=== PATIENT | female | born 1965 | race Caucasian/White ===

== ENCOUNTER → 2018-04-29 | Outpatient (CLI) | payer OTHER | LOC: M WHC 07:58 | DX: M85.832 Other specified disorders of bone density and structure, left forearm (principal) | CPT/HCPCS: 77080 ==

== ENCOUNTER 2019-03-27 14:41 | Observation (INO) | payer OTHER ==
[~2019-03-27] VITALS: Ht 162.6 cm; Wt 96.4 kg
[~2019-03-27 14:41] MED LIST: FLON1SPR NARES; GEMF600T5 PO; LIDO1.1P EX; LISI-538 PO; MAXA10TA14 PO; MELO15TA28 PO
[2019-03-27] MEDS ORDERED: diazePAM 5 MG TAB PO ONE (15:45)
[2019-03-27] MEDS ORDERED: MECLIZINE 25 MG TABLET PO ONE (15:45)
[2019-03-27] MEDS ORDERED: ONDANSETRON 4MG/2ML VIAL (J2405) IV ONE (15:45)
[2019-03-27] MEDS ORDERED: NS 500 ML IV ONE (15:45)
[2019-03-27] MEDS ORDERED: hydrALAZINE INJ 20 MG/ML VIAL IV STA (15:59)
--- NOTE | 2019-03-27 16:32 | REP ---
CT Head without contrast HISTORY: Vertigo COMPARISON: None There is no intraparenchymal hemorrhage, acute infarct, mass or midline shift. The ventricular system is normal in appearance. There is no extra cerebral collection. There is no fracture. The visualized sinuses are clear. IMPRESSION: There is no intracranial lesion. Electronically Signed by Andrew Butt MD 03/27/2019 04:24 P
[2019-03-27 16:53] LABS: BASO # 0.1 10^3/uL (0.0-0.2); BASO % 0.6 % (0.0-1.0); EOS # 0.2 10^3/uL (0.0-0.50); EOS % 1.7 % (0.0-3.0); HEMATOCRIT 45.1 % (36.0-47.0); HEMOGLOBIN 15.1 g/dl (12.0-15.5); LYMPH # 1.6 10^3/uL (1.5-4.5); LYMPH % 12.7 % (24.0-44.0); MEAN CORPUSCULAR HEMOGLOBIN 30.6 pg (27.0-33.0); MEAN CORPUSCULAR HGB CONC 33.5 g/dl (32.0-36.5); MEAN CORPUSCULAR VOLUME 91.3 fl (80.0-96.0); MONO # 0.6 10^3/uL (0.0-0.8); MONO % 4.7 % (0.0-5.0); NEUTROPHILS % 79.9 % (36.0-66.0); PLATELET COUNT, AUTOMATED 304 10^3/uL (150-450); RED BLOOD COUNT 4.94 10^6/uL (4.00-5.40); WHITE BLOOD COUNT 12.5 10^3/uL (4.0-10.0)
[2019-03-27 18:16] LABS: ALBUMIN 3.8 GM/DL (3.2-5.2); ALT/SGPT < 6 U/L (12-78); BILIRUBIN,DIRECT < 0.1 MG/DL (0.0-0.2); BILIRUBIN,TOTAL 0.3 MG/DL (0.2-1.0); BLOOD UREA NITROGEN 12 MG/DL (7-18); CALCIUM LEVEL 8.9 MG/DL (8.5-10.1); CARBON DIOXIDE LEVEL 26 MEQ/L (21-32); CHLORIDE LEVEL 107 MEQ/L (98-107); CREATININE FOR GFR 0.82 MG/DL (0.55-1.30); GLOMERULAR FILTRATION RATE > 60.0 (>51); GLUCOSE, FASTING 100 MG/DL (70-100); LIPASE 171 U/L (73-393); POTASSIUM SERUM 3.8 MEQ/L (3.5-5.1); SODIUM LEVEL 141 MEQ/L (136-145); TOTAL PROTEIN 7.3 GM/DL (6.4-8.2)
[2019-03-27] MEDS ORDERED: LORazepam 2 MG/ML VIAL (J2060) IV STA (18:22)
--- NOTE | 2019-03-27 19:59 | ECGEPIP ---
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
[2019-03-27] MEDS: **NOTE PATIENT COMMENT** MISC XX SCH (21:00)
--- NOTE | 2019-03-27 21:42 | REPVR ---
EXAM: MR Head Without Contrast EXAM DATE/TIME: 03/27/2019 8:48 PM CLINICAL HISTORY: 53 years old, female; Signs and symptoms; Dizziness; Additional info: Intractable vertigo TECHNIQUE: Imaging protocol: MR of the head without contrast. COMPARISON: CT Head without contrast 03/27/2019 3:38 PM FINDINGS: Brain: No acute infarct identified on the diffusion weighted imaging. No parenchymal hemorrhage. No evidence of brain parenchymal edema or intracranial mass effect. No significant white matter disease for the patient's age. Ventricles: Stable. No ventriculomegaly. Bones/joints: There is an 8.3 mm T2 hyperintense lesion in the pineal region statistically likely to be a pineal cyst. Soft tissues: There is a 10 mm ovoid T2 hyperintense lesion in the right nasal tissues probably representing a sebaceous cyst. Sinuses: Normal as visualized. No acute sinusitis. Mastoid air cells: Trace right mastoid effusion. Orbits: Unremarkable. IMPRESSION: No evidence of acute infarct. Electronically signed by: Jennifer Castelan On 03/27/2019 21:42:36 PM
--- NOTE | 2019-03-27 21:45 | REPVR ---
EXAM: MR Angiogram Head Without Contrast, Arteries EXAM DATE/TIME: 03/27/2019 8:48 PM CLINICAL HISTORY: 53 years old, female; Signs and symptoms; Dizziness and giddiness; Additional info: Intractbale vertigo TECHNIQUE: Imaging protocol: MR angiogram head without contrast. Exam focused on the arteries. 3D rendering: MIP reconstructed images were created and reviewed. COMPARISON: CT Head without contrast 03/27/2019 3:38 PM FINDINGS: Right internal carotid artery: Unremarkable. Intracranial segment is patent with no significant stenosis. No aneurysm. Right anterior cerebral artery: Unremarkable. No occlusion or significant stenosis. No aneurysm. Right middle cerebral artery: Unremarkable. No occlusion or significant stenosis. No aneurysm. Right posterior cerebral artery: Unremarkable. No occlusion or significant stenosis. No aneurysm. Right vertebral artery: Unremarkable. No occlusion or significant stenosis. No aneurysm. Left internal carotid artery: Unremarkable. Intracranial segment is patent with no significant stenosis. No aneurysm. Left anterior cerebral artery: Unremarkable. No occlusion or significant stenosis. No aneurysm. Left middle cerebral artery: Unremarkable. No occlusion or significant stenosis. No aneurysm. Left posterior cerebral artery: Unremarkable. No occlusion or significant stenosis. No aneurysm. Left vertebral artery: Unremarkable. No occlusion or significant stenosis. No aneurysm. Basilar artery: Unremarkable. No occlusion or significant stenosis. No aneurysm. IMPRESSION: No major proximal vessel branch occlusion, aneurysm or arteriovenous malformation seen. Electronically signed by: Jennifer Castelan On 03/27/2019 21:45:30 PM
[2019-03-27] MEDS ORDERED: LISI10TA4 PO (22:32)
[2019-03-27] MEDS ORDERED: MELO15TA28 PO (22:32)
[2019-03-27] MEDS ORDERED: AMMO12CR7 TOP (22:32)
[2019-03-27] MEDS ORDERED: LIDO5DIS41 TD (22:32)
[2019-03-27] MEDS ORDERED: ROPI0.253 PO (22:32)
[2019-03-27 23:23] VITALS: BP 156/74
[2019-03-27] MEDS ORDERED: RIZATRIPTAN BENZOATE 10 MG TAB PO PRN (23:45)
[2019-03-27] MEDS ORDERED: ACETAMINOPHEN TAB 650MG DOSE (2X325MG) PO PRN (23:45)
[2019-03-27] MEDS ORDERED: FLUTICASONE PROP 0.05% NASAL SPRAY 16 GM (FLONASE) NARES PRN (23:45)
[2019-03-27] MEDS ORDERED: MOM 30ML SUSPENSION UDC PO PRN (23:45)
[2019-03-27] MEDS ORDERED: rOPINIRole 0.25 MG TAB(REQUIP) PO PRN (23:45)
[2019-03-27] MEDS ORDERED: ONDANSETRON 4MG/2ML VIAL (J2405) IV PRN (23:45)
[2019-03-27] MEDS: ENOXAPARIN 40 MG/0.4 ML SYRINGE (J1650) SC SCH (23:45)
[2019-03-28] MEDS: LISINOPRIL 10 MG TAB PO SCH ×3 (00:14→20:39)
[2019-03-28] MEDS: NS 1,000 ML IV SCH ×3 (00:14→12:07)
[2019-03-28] MEDS: MECLIZINE 25 MG TABLET PO SCH ×4 (00:14→16:39)
--- NOTE | 2019-03-28 02:41 | HPEPDOC ---
General Date of Admission Mar 27, 2019 at 22:24 Other Providers PCP: Dr. Flores @ [facility] Chief Complaint The patient is a 53-year-old female admitted with a reason for visit of Severe Dizziness. History of Present Illness 53-year-old female presents with boyfriend for dizziness that started all of a sudden this afternoon while sitting. She describes it as the room spinning, rather than her being off-balance. Has associated nausea and vomiting. Denies ever experiencing this before. Denies any motor, sensory, or neurologic changes. No blurred vision, tinnitus, eye or ear pain, paresthesias. Denies any recent illness, changes in meds, travel history, sick contacts. Of note, she did initially present with elevated BP as high as 200s/100s. In the ER, she received Valium, meclizine, Zofran, NS bolus, hydralazine, & Ativan. Her BP and vertiginous symptoms did improve, however still slightly dizzy. She will therefore be admitted. Home Medications Scheduled Ammonium Lactate (Ammonium Lactate) 12% Cream..g., 1 APLCT TOP DAILY, (Reported) Lidocaine (Lidoderm) 5% Adh..patch, 1 PATCH TD DAILY, (Reported) APPLIES TO BACK Lisinopril (Lisinopril) 10 Mg Tablet, 10 MG PO BID, (Reported) Meloxicam (Meloxicam) 15 Mg Tablet, 15 MG PO DAILY, (Reported) Scheduled PRN Fluticasone Propionate (Flonase Allergy Relief) 9.9 Ml [place].susp, 1 SPR NARES BID PRN for ALLERGIES, (Reported) Rizatriptan Benzoate (Maxalt) 10 Mg Tablet, 10 MG PO DAILY PRN for MIGRAINE, (Reported) Ropinirole HCl (Ropinirole HCl) 0.25 Mg Tablet, 0.25 MG PO DAILY PRN for RES TLESS LEGS, (Reported) Allergies Coded Allergies: No Known Allergies (Verified , 09/19/04) Past Medical History Medical History Hypertension Seasonal allergies Migraines Restless leg syndrome Surgical History Appendectomy Tubal ligation Family History Father with MA. Mother with CAD and thyroid disorder. 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 Admits hx migraines. Denies ear pain, tinnitus, hearing loss Skin: Denies any rashes or lesions Pulmonary: Denies dyspnea, cough, wheezing Cardiac: Denies chest pain, palpitations GI: Admits nausea & vomiting. No abdominal pain, changes in bowel, or blood loss MSK: No new pains or aches Neurologic: Admits to dizziness, room-spinning with movement. Denies any new numbness/tingling or sensory loss. Denies slurred speech, weakness, confusion. Denies sensitivity to lights or sounds. Physical Examination Other physical findings General exam: Alert and cooperative, A&O 3, NAD Eye exam: PERRLA, EOMI, anicteric sclera, red reflex present b/l ENT: Atraumatic, normocephalic, slightly dry membranes moist, tongue midline, no pharyngeal edema or erythema. Patent ear canals with intact TM without effusion Neck: Supple, no JVD, no tenderness to c-spine Cardiac: RRR, normal S1 & S2, no murmurs Respiratory: CTAB, good air exchange, no wheezing, rhonchi, or rales Abdomen: obese, normoactive bowel sounds, soft, nontender, nondistended Extremity: no edema or tenderness. Able to move all limbs with ease Skin: [place], warm, dry, no visible rash or lesions Neuro: Strength, tone, & sensation intact. Normal speech, no deficits in any limbs. Gait intact and normal without any swaying or near-falls. Negative Romberg. No tremors or nystagmus. Psych: Normal mood and affect Vital Signs Vital Signs Date Time Temp Pulse Resp B/P (MAP) Pulse Ox O2 Delivery O2 Flow Rate FiO2 03/28/19 00:14 152/83 03/27/19 23:23 97.9 84 18 96 03/27/19 23:01 Room Air Laboratory Data Labs 24H Laboratory Tests 2 03/27/19 16:38: Immature Granulocyte % (Auto) 0.4, White Blood Count 12.5H, Red Blood Count 4.94, Hemoglobin 15.1, Hematocrit 45.1, Mean Corpuscular Volume 91.3, Mean Corpuscular Hemoglobin 30.6, Mean Corpuscular Hemoglobin Concent 33.5, Red Cell Distribution Width 12.7, Platelet Count 304, Neutrophils (%) (Auto) 79.9H, Lymphocytes (%) (Auto) 12.7L, Monocytes (%) (Auto) 4.7, Eosinophils (%) (Auto) 1.7, Basophils (%) (Auto) 0.6, Neutrophils # (Auto) 10.0H, Lymphocytes # (Auto) 1.6, Monocytes # (Auto) 0.6, Eosinophils # (Auto) 0.2, Basophils # (Auto) 0.1, Nucleated Red Blood Cells % (auto) 0.0, Anion Gap 8, Glomerular Filtration Rate > 60.0, Calcium Level 8.9, Aspartate Amino Transf (AST/SGOT) 12, Alanine Aminotransferase (ALT/SGPT) < 6L, Alkaline Phosphatase 129H, Total Bilirubin 0.3, Direct Bilirubin < 0.1, Total Protein 7.3, Albumin 3.8, Albumin/Globulin Ratio 1.09, Lipase 171 CBC/BMP Laboratory Tests 03/27/19 16:38 Red Blood Count 4.94, Mean Corpuscular Volume 91.3, Mean Corpuscular Hemoglobin 30.6, Mean Corpuscular Hemoglobin Concent 33.5, Red Cell Distribution Width 12.7, Neutrophils (%) (Auto) 79.9 H, Lymphocytes (%) (Auto) 12.7 L, Monocytes (%) (Auto) 4.7, Eosinophils (%) (Auto) 1.7, Basophils (%) (Auto) 0.6, Neutrophils # (Auto) 10.0 H, Lymphocytes # (Auto) 1.6, Monocytes # (Auto) 0.6, Eosinophils # (Auto) 0.2, Basophils # (Auto) 0.1 Assessment/Plan Dizziness with nausea and vomiting Likely vertigo from BPPV, as pt feels room is spinning. Sx only occur with movement, improve with rest. Unlikely Meniere or Vestibular Neuritis or migraine based on sx. Responded well to Meclizine in ER. Brain CT & MRI negative. EKG shows no acute abnormality. She does appear to be slightly dehydrated on exam, likely 2/2 n/v from dizziness. Will continue Meclizine and start on IVF and antiemetics. Encourage working with PT & OT and may benefit from vestibular rehab. No focal deficits or neuro abnormalities on exam. Hypertension Continue home lisinopril Seasonal allergies Continue home Flonase Migraines Continue home Maxalt, meloxicam Restless leg syndrome Continue home ropinirole Morbid obesity BMI 36 complicates care DVT ppx: Lovenox sc DISPO: will admit to hospital. PT/OT ordered. Plan / VTE VTE Prophylaxis Ordered?: Yes GME ATTESTATION GME ATTESTATION My faculty preceptor for this patient encounter was physically present during the encounter and was fully available. All aspects of the patient interview, examination, medical decision making process, and medical care plan development were reviewed and approved by the faculty preceptor. The faculty preceptor is aware and concurs with the plan as stated in the body of this note and will at test to such by his/her cosignature. ATTENDING NOTE I have personally examined the patient at bedside along with resident physician. I have discussed above mentioned assessment and treatment plan with resident physician. I will continue to follow the patient during entire hospital stay. ANNIE GARCIA DO Mar 28, 2019 02:41 KAMILAH RUCKER MD Mar 28, 2019 20:26
[2019-03-28 06:00] VITALS: BP 133/67
[2019-03-28 06:40] LABS: HEMATOCRIT 41.7 % (36.0-47.0); HEMOGLOBIN 13.7 g/dl (12.0-15.5); MEAN CORPUSCULAR HEMOGLOBIN 29.7 pg (27.0-33.0); MEAN CORPUSCULAR HGB CONC 32.9 g/dl (32.0-36.5); MEAN CORPUSCULAR VOLUME 90.5 fl (80.0-96.0); PLATELET COUNT, AUTOMATED 312 10^3/uL (150-450); RED BLOOD COUNT 4.61 10^6/uL (4.00-5.40); WHITE BLOOD COUNT 10.9 10^3/uL (4.0-10.0)
[2019-03-28 06:59] LABS: BLOOD UREA NITROGEN 10 MG/DL (7-18); CALCIUM LEVEL 8.5 MG/DL (8.5-10.1); CARBON DIOXIDE LEVEL 28 MEQ/L (21-32); CHLORIDE LEVEL 110 MEQ/L (98-107); CREATININE FOR GFR 0.86 MG/DL (0.55-1.30); GLOMERULAR FILTRATION RATE > 60.0 (>51); GLUCOSE, FASTING 87 MG/DL (70-100); POTASSIUM SERUM 3.8 MEQ/L (3.5-5.1); SODIUM LEVEL 142 MEQ/L (136-145)
[2019-03-28] MEDS: NICOTINE 14 MG/24 HR TRANSDERMAL TD SCH (08:04)
[2019-03-28] MEDS: LIDOCAINE 5% (LIDODERM) PATCH TD SCH (08:05)
[2019-03-28] MEDS: LACTIC ACID 12% LOTION 225 GM BTL TOP SCH (08:08)
[2019-03-28] MEDS: MELOXICAM (MOBIC) 7.5 MG TAB PO SCH (12:07)
[2019-03-28 14:00] VITALS: BP 144/81
--- NOTE | 2019-03-28 14:11 | IPNPDOC ---
Text Note Date of Service The patient was seen on 03/28/19. NOTE Subjective: Patient is a 53-year-old female with a PMHx HTN, Seasonal allergies, Migraines and RLS who presented to the ER with complaints of dizziness that started suddenly on 03/27 afternoon. . She described the sensation as the room spinning and reported associated nausea and vomiting. Hospitalist service was called and patient was admitted for further evaluation and treatment. Patient was seen and examined at the bedside. Patient reports that her dizziness appears to be improving. Denies any nausea and vomiting at this moment. Denies any chest pain, short of breath, palpitations, constipation, diarrhea or any abdominal pain. Denies any discomfort with urination Objective: Vitals (See below) General: Lying in bed, no acute distress, comfortable, AAOx3 HEENT: NC, AT CVS: RRR, +S1S2 Lungs: Fair air entry b/l, Abdomen: Soft, ND, NT Extremities: - Edema, - Calf tenderness Assessment and plan: Dizziness with nausea and vomiting - Likely vertigo from BPPV, unlikely 2/2 Vestibular neuritis / Meniere disease - Patient reported symptoms of room spinning associated with nausea and vomiti ng; currently, she feels that there has been improvement - Remains hemodynamically stable and afebrile - CT head 03/27: There is no intracranial lesion. - MRA Brain 03/27: No major proximal vessel branch occlusion, aneurysm or arteriovenous malformation seen. - MRI Brain 03/27: No evidence of acute infarct. - c/w Meclizine and IV fluid hydration - c/w PT / OT until cleared for DC home Hypertension - c/w Lisinopril Seasonal allergies - c/w Flonase Migraines - c/w Maxalt and Meloxicam Restless leg syndrome - c/w Ropinirole Morbid obesity - BMI 36 - Complicates care DVT prophylaxis - c/w Lovenox Disposition: - Awaiting progression with PT / OT VS,Ceferinobonjin, I+O VS, Fishbone, I+O Laboratory Tests 03/27/19 16:38 Red Blood Count 4.94, Mean Corpuscular Volume 91.3, Mean Corpuscular Hemoglobin 30.6, Mean Corpuscular Hemoglobin Concent 33.5, Red Cell Distribution Width 12.7, Neutrophils (%) (Auto) 79.9 H, Lymphocytes (%) (Auto) 12.7 L, Monocytes (%) (Auto) 4.7, Eosinophils (%) (Auto) 1.7, Basophils (%) (Auto) 0.6, Neutrophils # (Auto) 10.0 H, Lymphocytes # (Auto) 1.6, Monocytes # (Auto) 0.6, Eosinophils # (Auto) 0.2, Basophils # (Auto) 0.1 03/28/19 06:06 Red Blood Count 4.61, Mean Corpuscular Volume 90.5, Mean Corpuscular Hemoglobin 29.7, Mean Corpuscular Hemoglobin Concent 32.9, Red Cell Distribution Width 13.0, Calcium Level 8.5 Vital Signs Date Time Temp Pulse Resp B/P (MAP) Pulse Ox O2 Delivery O2 Flow Rate FiO2 03/28/19 08:04 133/67 03/28/19 06:00 97.6 89 18 94 03/27/19 23:01 Room Air I&O- Last 24 Hours up to 6 AM 03/28/19 05:59 Intake Total 500 ml Output Total 350 ml Balance 150 ml GLORIA ATKINSON MD Mar 28, 2019 14:11
[2019-03-28 20:37] VITALS: BP_SYST 154; BP_SYST 159; BP_DIAS 86; BP_DIAS 91; BP_DIAS 92
[2019-03-28] MEDS: ENOXAPARIN 40 MG/0.4 ML SYRINGE (J1650) SC SCH (20:39)
[2019-03-28] MEDS: **NOTE PATIENT COMMENT** MISC XX SCH ×2 (20:41→20:58)
[2019-03-28 22:00] VITALS: BP 154/86
[2019-03-29] MEDS: MECLIZINE 25 MG TABLET PO SCH ×2 (01:06→05:36)
[2019-03-29 05:36] VITALS: BP_SYST 135; BP_SYST 158; BP_SYST 162; BP_DIAS 103; BP_DIAS 74; BP_DIAS 91
[2019-03-29 06:00] VITALS: BP 135/74
[2019-03-29 07:00] LABS: HEMATOCRIT 39.4 % (36.0-47.0); HEMOGLOBIN 12.5 g/dl (12.0-15.5); MEAN CORPUSCULAR HEMOGLOBIN 29.8 pg (27.0-33.0); MEAN CORPUSCULAR HGB CONC 31.7 g/dl (32.0-36.5); MEAN CORPUSCULAR VOLUME 93.8 fl (80.0-96.0); PLATELET COUNT, AUTOMATED 274 10^3/uL (150-450)
[2019-03-29] MEDS ORDERED: MECL-86 PO ×2 (07:15→09:14)
[2019-03-29 07:25] LABS: BLOOD UREA NITROGEN 14 MG/DL (7-18); CALCIUM LEVEL 8.5 MG/DL (8.5-10.1); CARBON DIOXIDE LEVEL 28 MEQ/L (21-32); CHLORIDE LEVEL 110 MEQ/L (98-107); CREATININE FOR GFR 0.99 MG/DL (0.55-1.30); GLOMERULAR FILTRATION RATE > 60.0 (>51); GLUCOSE, FASTING 107 MG/DL (70-100); POTASSIUM SERUM 4.2 MEQ/L (3.5-5.1); SODIUM LEVEL 143 MEQ/L (136-145)
[2019-03-29] MEDS: LACTIC ACID 12% LOTION 225 GM BTL TOP SCH (08:32)
[2019-03-29] MEDS: NICOTINE 14 MG/24 HR TRANSDERMAL TD SCH (08:32)
[2019-03-29 08:33] VITALS: BP 135/74
[2019-03-29] MEDS: LISINOPRIL 10 MG TAB PO SCH (08:33)
[2019-03-29] MEDS: MELOXICAM (MOBIC) 7.5 MG TAB PO SCH (08:33)
[2019-03-29] MEDS: LIDOCAINE 5% (LIDODERM) PATCH TD SCH (08:34)
--- NOTE | 2019-03-29 11:04 | DS.PDOC ---
Discharge Summary General Date of Admission Mar 27, 2019 at 22:24 Date of Discharge 03/29/2019 Discharge Summary PROCEDURES PERFORMED DURING STAY: [None]. ADMITTING DIAGNOSES / DISCHARGE DIAGNOSES: Dizziness with nausea and vomiting - Likely vertigo from BPPV, unlikely 2/2 Vestibular neuritis / Meniere disease Hypertension Seasonal allergies Migraines Restless leg syndrome Morbid obesity DVT prophylaxis COMPLICATIONS/CHIEF COMPLAINT: Dizziness / Room spinning HISTORY OF PRESENT ILLNESS: Patient is a 53-year-old female with a PMHx HTN, Seasonal allergies, Migraines and RLS who presented to the ER with complaints of dizziness that started suddenly on 03/27 afternoon. . She described the sensation as the room spinning and reported associated nausea and vomiting. Hospitalist service was called and patient was admitted for further evaluation and treatment. HOSPITAL COURSE: Dizziness with nausea and vomiting - Likely vertigo from BPPV, unlikely 2/2 Vestibular neuritis / Meniere disease - Patient reports resolution of her dizziness and has not experienced any nausea and vomiting - Remains hemodynamically stable and afebrile - CT head 03/27: There is no intracranial lesion. - MRA Brain 03/27: No major proximal vessel branch occlusion, aneurysm or arteriovenous malformation seen. - MRI Brain 03/27: No evidence of acute infarct. - c/w Meclizine; s/p IV fluid hydration - c/w PT;has been cleared for DC home - we'll have outpatient follow-up with vestibular therapy Hypertension - c/w Lisinopril Seasonal allergies - c/w Flonase Migraines - c/w Maxalt and Meloxicam Restless leg syndrome - c/w Ropinirole Morbid obesity - BMI 36 - Complicates care DVT prophylaxis - c/w Lovenox DISCHARGE MEDICATIONS: Please see below. ALLERGIES: Please see below. PHYSICAL EXAMINATION ON DISCHARGE: Vitals (See below) General: Lying in bed, no acute distress, comfortable, AAOx3 HEENT: NC, AT CVS: RRR, +S1S2 Lungs: Fair air entry b/l, without evidence of wheezing, rhonchi or rales Abdomen: Soft, nondistended, without tenderness Extremities: No evidence of edema, - Calf tenderness LABORATORY DATA: Please see below. ACTIVITY: [As tolerated]. DISCHARGE PLAN: Follow up with PCP at [facility] within 7 days Remain compliant with treatment plan and medications Return to the ER if you experience any problems DISPOSITION: Home, Self-Care with outpatient vestibular therapy DISCHARGE CONDITION: [Stable]. TIME SPENT ON DISCHARGE: Greater than [35] minutes. Vital Signs/I&Os Vital Signs Date Time Temp Pulse Resp B/P (MAP) Pulse Ox O2 Delivery O2 Flow Rate FiO2 03/29/19 08:33 135/74 03/29/19 06:00 97.6 66 18 94 03/27/19 23:01 Room Air I&O- Last 24 Hours up to 6 AM 03/29/19 06:00 Intake Total 1800 ml Output Total 400 ml Balance 1400 ml Laboratory Data Labs 24H Laboratory Tests 2 03/29/19 06:31: Nucleated Red Blood Cells % (auto) 0.0, Anion Gap 5L, Glomerular Filtration Rate > 60.0, Blood Urea Nitrogen 14, Creatinine 0.99, Sodium Level 143, Potassium Level 4.2, Chloride Level 110H, Carbon Dioxide Level 28, Calcium Level 8.5 CBC/BMP Laboratory Tests 03/29/19 06:31 Red Blood Count 4.20, Mean Corpuscular Volume 93.8, Mean Corpuscular Hemoglobin 29.8, Mean Corpuscular Hemoglobin Concent 31.7 L, Red Cell Distribution Width 13.2, Calcium Level 8.5 Discharge Medications Scheduled Ammonium Lactate (Ammonium Lactate) 12% Cream..g., 1 APLCT TOP DAILY, (Reported) Lidocaine (Lidoderm) 5% Adh..patch, 1 PATCH TD DAILY, (Reported) APPLIES TO BACK Lisinopril (Lisinopril) 10 Mg Tablet, 10 MG PO BID, (Reported) Meloxicam (Meloxicam) 15 Mg Tablet, 15 MG PO DAILY, (Reported) Scheduled PRN Fluticasone Propionate (Flonase Allergy Relief) 9.9 Ml [place].susp, 1 SPR NARES BID PRN for ALLERGIES, (Reported) Meclizine HCl (Meclizine HCl) 25 Mg Tablet, 25 MG PO TIDP PRN for DIZZINESS Rizatriptan Benzoate (Maxalt) 10 Mg Tablet, 10 MG PO DAILY PRN for MIGRAINE, (Reported) Ropinirole HCl (Ropinirole HCl) 0.25 Mg Tablet, 0.25 MG PO DAILY PRN for RESTLESS LEGS, (Reported) Allergies Coded Allergies: No Known Allergies (Verified , 09/19/04) GLORIA ATKINSON MD Mar 29, 2019 11:04
== END 2019-03-29 09:40 | disposition home or self-care (01) ==
LOC: M ED 14:41 → M ED INP 22:24 → M MS5PR 23:30
PROVIDERS: ADMIT Internal Medicine; ATTEND Internal Medicine
DX: H81.10 Benign paroxysmal vertigo, unspecified ear (principal); R11.2 Nausea with vomiting, unspecified; I10 Essential (primary) hypertension; G43.909 Migraine, unspecified, not intractable, without status migrainosus; G25.81 Restless legs syndrome; E66.01 Morbid (severe) obesity due to excess calories; F17.210 Nicotine dependence, cigarettes, uncomplicated
CPT/HCPCS: 36415; 70450; 70544; 70551; 80048; 80076; 83690; 85025; 85027; 93005; 93041; 96372; 96374; 96375; 97112; 97161; 99285; J1650; J2060; J2405

== ENCOUNTER 2019-04-09 05:53 | Day surgery (SDC) | payer OTHER ==
[~2019-04-09] VITALS: Ht 162.6 cm; Wt 97.5 kg
[~2019-04-09 05:53] MED LIST changes: +AMMO12CR7 TOP; +LIDO5DIS41 TD; +LISI10TA4 PO; +MECL-86 PO; +ROPI0.253 PO
[2019-04-09] MEDS ORDERED: LR 1,000 ML IV ONE (06:00)
[2019-04-09] MEDS ORDERED: LIDOCAINE 1% MDV 20ML VIAL SQ PRN (06:00)
[2019-04-09] MEDS ORDERED: ceFAZolin SOD 1 GM in D5W MINI-BAG PLUS 50 ML IV ONE (06:30)
[2019-04-09] MEDS ORDERED: LIDOCAINE W/EPINEPHRINE 1% 20ML VIAL As Ordered ONE (06:56)
[2019-04-09] MEDS ORDERED: BACITRACIN OINT 30GM As Ordered ONE (06:56)
[2019-04-09] MEDS ORDERED: POVIDONE-IODINE 5% OPHTH PREP SOL 30ML As Ordered ONE (07:13)
[2019-04-09] MEDS ORDERED: LIDOCAINE 2% W/EPIN INJ 20ML **PRES FREE As Ordered ONE (07:16)
[2019-04-09] MEDS ORDERED: POLYSPORIN OPHTH OINT 3.5 GM As Ordered ONE (07:19)
[2019-04-09] MEDS ORDERED: SCOPOLAMINE 1MG TRANSDERMAL PATCH As Ordered ONE (07:22)
[2019-04-09] MEDS ORDERED: SCOPOLAMINE 1MG TRANSDERMAL PATCH TOP ONE (07:30)
[2019-04-09] MEDS ORDERED: PROPOFOL 200 MG/20 ML VIAL As Ordered ONE ×2 (07:42→07:43)
[2019-04-09] MEDS ORDERED: LIDOCAINE 2% INJ 100 MG/5 ML SDV (FOR ANES.) As Ordered ONE (07:42)
[2019-04-09] MEDS ORDERED: MIDAZOLAM INJ 2 MG/2 ML VIAL (J2250) As Ordered ONE (07:42)
[2019-04-09] MEDS ORDERED: KETOROLAC 60 MG/2 ML VIAL (J1885) As Ordered ONE (07:42)
[2019-04-09] MEDS ORDERED: fentaNYL 100 MCG/2 ML INJECTION (J3010) As Ordered ONE (07:42)
[2019-04-09] MEDS ORDERED: ONDANSETRON 4MG/2ML VIAL (J2405) As Ordered ONE (07:42)
[2019-04-09] MEDS ORDERED: METOCLOPRAMIDE INJ 10MG/2ML VIAL (J2765) As Ordered ONE (07:42)
[2019-04-09] MEDS ORDERED: dexameTHASONE 4 MG/ML 1ML VIAL (J1100) As Ordered ONE (07:42)
--- NOTE | 2019-04-09 08:08 | POST-OPPD ---
Postoperative Procedure Note Date Of Procedure: April 09, 2019 PREOPERATIVE DIAGNOSIS: Right nose mass POSTOPERATIVE DIAGNOSIS: same FINDINGS: right nose cyst PROCEDURE: Excision right nose mass SURGEON: Dr Meadows ANESTHESIA: local with sedation SPECIMENS: right nose cyst ESTIMATED BLOOD LOSS: 1 cc REPLACED: none DRAINS: none COMPLICATIONS: none POSTOPERATIVE CONDITION: stable BRITTANIE MEADOWS DO April 09, 2019 08:08
[2019-04-09 08:45] VITALS: BP 150/75
--- NOTE | 2019-04-09 17:32 | RO ---
DATE OF PROCEDURE: 04/09/2019 PREOPERATIVE DIAGNOSIS: Right nose mass. POSTOPERATIVE DIAGNOSIS: Right nose mass. PROCEDURE: Excision right nose mass. ATTENDING SURGEON: Dr. Alvarez ANESTHESIA: Local with sedation. SPECIMEN: Right nose cyst. BLOOD LOSS: 1 mL. REPLACEMENT: None. DRAINS: None. COMPLICATIONS: None. PROCEDURE: This is a 53-year-old female who has slow growing mass on the right side of her nose now it is about 1.5 cm in diameter and it is protruding. Patient wishes to have it removed. All risks and benefits and alternatives were discussed with the patient. She is ready to proceed. On the day of surgery she was marked in the preoperative holding area to identify the lesion. There is no purulence or no drainage from it. The patient was brought into the operating room and placed in a supine position and antibiotics were given to the patient. Sequential stockings were placed on the lower calves. She was prepped and draped in the usual sterile fashion. 2% Lidocaine with epinephrine was used to give infraorbital block and also field block. Total 3 mL of total local. After the numbing effect of the local anesthesia had taken place. The incision was carried out along the nasal labial groove. There is punctum that was identified on the skin and its is included in her excision of the small sliver of skin. Blunt dissection was carried out the cyst was identified and was bluntly dissected out in its entirety and sent to pathology. The area was irrigated with Bacitracin irrigation solution and closed in layers with 4-0 and 5-0 Monocryl. Steri-strips were applied. Patient tolerated the procedure well. She was transferred to the recovery room in stable condition.
== END 2019-04-09 09:35 | disposition home or self-care (01) ==
LOC: M SDC 05:53
PROVIDERS: ATTEND Plastic Surgery Surgery of the Hand
DX: L72.0 Epidermal cyst (principal); I10 Essential (primary) hypertension; E11.9 Type 2 diabetes mellitus without complications; E03.9 Hypothyroidism, unspecified; K58.9 Irritable bowel syndrome, unspecified; K21.9 Gastro-esophageal reflux disease without esophagitis; M54.5 Low back pain; G89.29 Other chronic pain; L30.9 Dermatitis, unspecified; M12.9 Arthropathy, unspecified; G43.909 Migraine, unspecified, not intractable, without status migrainosus; R06.83 Snoring; G47.30 Sleep apnea, unspecified; E66.01 Morbid (severe) obesity due to excess calories; Z68.36 Body mass index [BMI] 36.0-36.9, adult; Z98.51 Tubal ligation status; Z72.0 Tobacco use
CPT/HCPCS: 11443; 88307; J0690; J1100; J1885; J2250; J2405; J2765; J3010

== ENCOUNTER 2020-01-02 13:53 | Emergency (ER) | payer OTHER ==
[~2020-01-02] VITALS: Ht 162.6 cm; Wt 99.1 kg
[2020-01-02] MEDS ORDERED: GABA600T4 (14:13)
[2020-01-02] MEDS ORDERED: METF-791 (14:13)
[2020-01-02] MEDS ORDERED: CRES20TA2 (14:13)
[2020-01-02 14:47] LABS: BASO # 0.1 10^3/uL (0.0-0.2); BASO % 0.8 % (0.0-1.0); EOS # 0.2 10^3/uL (0.0-0.5); EOS % 2.1 % (0.0-3.0); HEMOGLOBIN 15.3 g/dl (12.0-15.5); LYMPH # 2.6 10^3/uL (1.5-5.0); MEAN CORPUSCULAR HEMOGLOBIN 29.5 pg (27.0-33.0); MEAN CORPUSCULAR HGB CONC 31.9 g/dl (32.0-36.5); MEAN CORPUSCULAR VOLUME 92.7 fl (80.0-96.0); MONO # 0.8 10^3/uL (0.0-0.8); MONO % 7.4 % (0.0-5.0); NEUTROPHILS # 6.7 10^3/uL (1.5-8.5); NEUTROPHILS % 64.3 % (36.0-66.0); PLATELET COUNT, AUTOMATED 298 10^3/uL (150-450); RED BLOOD COUNT 5.18 10^6/uL (4.00-5.40); WHITE BLOOD COUNT 10.5 10^3/uL (4.0-10.0)
--- NOTE | 2020-01-02 14:56 | REP ---
Portable chest, 02:36 p.m., single AP view with the patient sitting: Comparison is the PA and lateral chest of 08/08/2011. The lung [place] are clear. The cardiac size is normal. The maria eugenia, mediastinum, and skeletal structures are unremarkable. Impression: Negative portable chest. There is no interval change. Electronically Signed by Wilfredo Valenzuela MD 01/02/2020 02:47 P
[2020-01-02 15:23] LABS: ALBUMIN 3.9 GM/DL (3.2-5.2); ALT/SGPT 23 U/L (12-78); BILIRUBIN,DIRECT 0.1 MG/DL (0.0-0.2); BILIRUBIN,TOTAL 0.5 MG/DL (0.2-1.0); CK-MB VALUE MASS < 1.0 NG/ML (<3.6); CPK CREATINE PHOSPHOKINASE 45 U/L (26-192); MB/CK RELATIVE INDEX 2.22 (< OR =4); THYROXINE (T4) 10.1 UG/DL (4.5-12.0); TOTAL PROTEIN 7.1 GM/DL (6.4-8.2); TROPONIN I < 0.02 NG/ML (< 0.10)
[2020-01-02] MEDS ORDERED: ALPR0.25 PO (16:42)
[2020-01-02] MEDS ORDERED: ALPRAZolam 0.25 MG TAB PO ONE (16:45)
[2020-01-02 16:53] VITALS: BP 120/59
--- NOTE | 2020-01-02 21:52 | ECGEPIP ---
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
== END 2020-01-02 17:00 | disposition home or self-care (01) ==
LOC: M ED 13:53
DX: R00.2 Palpitations (principal); F17.200 Nicotine dependence, unspecified, uncomplicated; Z79.84 Long term (current) use of oral hypoglycemic drugs; Z79.899 Other long term (current) drug therapy

== ENCOUNTER → 2022-06-19 | Outpatient (CLI) | payer OTHER ==
[~2022-06-19] MED LIST changes: +ALPR0.25 PO; +CRES20TA2; +GABA600T4; -LISI-538 PO; +LISI10TA22 PO; -LISI10TA4 PO; +LISI20TA33 PO; +METF-838
== END ==
LOC: M RAD 08:47
PROVIDERS: ATTEND Family Medicine
DX: K13.21 Leukoplakia of oral mucosa, including tongue (principal)

== ENCOUNTER → 2022-07-30 | Outpatient (CLI) | payer OTHER | LOC: M RAD 14:34 | PROVIDERS: ATTEND Family Medicine | DX: Z12.2 Encounter for screening for malignant neoplasm of respiratory organs (principal); F17.200 Nicotine dependence, unspecified, uncomplicated ==

== ENCOUNTER → 2023-05-03 | Outpatient (REF) | payer OTHER ==
[~2023-05-03] MED LIST changes: +COZA1TAB PO; -MAXA10TA14 PO; +MAXA10TA15 PO; +MECL-136 PO; +METF750T36 PO; +RIZA10TA64 PO; +ROSU40TA4 PO; +VITA100093 PO
[2023-05-03 13:46] LABS: APPEARANCE, URINE CLEAR (CLEAR); BACTERIA, URINE AUTO NEGATIVE (NEGATIVE); BILIRUBIN, URINE AUTO NEGATIVE (NEGATIVE); BLOOD, URINE BLOOD NEGATIVE (NEGATIVE); COLOR, URINE YELLOW (YELLOW); GLUCOSE, URINE (UA) AUTO 1+ mg/dL (NEGATIVE); KETONE, URINE AUTO NEGATIVE (NEGATIVE); LEUKOCYTE ESTERASE, URINE AUTO NEGATIVE (NEGATIVE); MUCUS, URINE SMALL (NEGATIVE); NITRITE, URINE AUTO NEGATIVE (NEGATIVE); PROTEIN, URINE AUTO NEGATIVE (NEGATIVE); RBC, URINE AUTO 0 /HPF (0-3); SPECIFIC GRAVITY URINE AUTO 1.016 (1.002-1.035); SQUAMOUS EPITHELIAL CELL UR AU 0 /HPF (0-6); UROBILINOGEN, URINE AUTO 0.2 mg/dL (0.0-2.0); WBC, URINE AUTO 0 /HPF (0-3)
== END ==
LOC: M SMT 13:13
PROVIDERS: ATTEND Physician Assistant
DX: N30.90 Cystitis, unspecified without hematuria (principal)
CPT/HCPCS: 51798; 81001; 87070; 87086; G0463

== ENCOUNTER → 2023-12-20 | Outpatient (CLI) | payer OTHER ==
[~2023-12-20] MED LIST changes: +AZEL1SPR3 NARES; -COZA1TAB PO; +E-Z-GAS II EFFERVESCENT PACKET (SODIUM BICARB./CITRIC ACID/SIMETHICONE) As Ordered ONE; +E-Z-HD 98% w/w 340GM SUSP BTL As Ordered ONE; +E-Z-PAQUE 96% w/w SUSP 176GM BTL As Ordered ONE; +FLON1SPR; +HYDR12CA PO; +LEVOTAB10 PO; +LOSA-527 PO; -MAXA10TA15 PO; +PANT20TA6 PO; +RIZA10TA66 PO; -ROPI0.253 PO; +ROPI5TAB19 PO; +TELM1TAB35 PO
== END ==
LOC: M RAD 08:53
PROVIDERS: ATTEND Physician Assistant Medical
DX: R13.10 Dysphagia, unspecified (principal); K21.9 Gastro-esophageal reflux disease without esophagitis

== ENCOUNTER 2024-01-10 12:48 | Day surgery (SDC) | payer OTHER ==
[~2024-01-10] VITALS: Ht 162.6 cm; Wt 105.6 kg
[~2024-01-10 12:48] MED LIST changes: -E-Z-GAS II EFFERVESCENT PACKET (SODIUM BICARB./CITRIC ACID/SIMETHICONE) As Ordered ONE; -E-Z-HD 98% w/w 340GM SUSP BTL As Ordered ONE; -E-Z-PAQUE 96% w/w SUSP 176GM BTL As Ordered ONE
[2024-01-10] MEDS ORDERED: fentaNYL 100 MCG/2 ML INJECTION As Ordered ONE (13:55)
[2024-01-10] MEDS ORDERED: LIDOCAINE 2% 100MG/5ML SDV (FOR ANES.) As Ordered ONE (13:58)
[2024-01-10] MEDS: NS 1,000 ML IV ONE (13:58)
[2024-01-10] MEDS ORDERED: propofoL 200 MG/20 ML VIAL As Ordered ONE (13:58)
[2024-01-10 15:40] VITALS: TEMP 97.3
[2024-01-10 15:57] VITALS: BP 143/77; O2SAT 96
== END 2024-01-10 16:05 | disposition home or self-care (01) ==
LOC: M OPP 12:48
PROVIDERS: ATTEND Internal Medicine Gastroenterology
DX: K29.70 Gastritis, unspecified, without bleeding (principal); K31.89 Other diseases of stomach and duodenum; R13.10 Dysphagia, unspecified; E11.9 Type 2 diabetes mellitus without complications; G47.9 Sleep disorder, unspecified; Z79.02 Long term (current) use of antithrombotics/antiplatelets; Z79.51 Long term (current) use of inhaled steroids; Z79.899 Other long term (current) drug therapy
CPT/HCPCS: 43239; 88305; J3010

== ENCOUNTER → 2024-01-24 | Outpatient (REF) | payer OTHER ==
[2024-01-25 10:21] LABS: APPEARANCE, URINE HAZY (CLEAR); BACTERIA, URINE AUTO NEGATIVE (NEGATIVE); BILIRUBIN, URINE AUTO NEGATIVE (NEGATIVE); BLOOD, URINE BLOOD NEGATIVE (NEGATIVE); COLOR, URINE YELLOW (YELLOW); GLUCOSE, URINE (UA) AUTO 3+ mg/dL (NEGATIVE); KETONE, URINE AUTO NEGATIVE (NEGATIVE); LEUKOCYTE ESTERASE, URINE AUTO 1+ (NEGATIVE); NITRITE, URINE AUTO NEGATIVE (NEGATIVE); PROTEIN, URINE AUTO NEGATIVE (NEGATIVE); RBC, URINE AUTO 2 /HPF (0-3); SPECIFIC GRAVITY URINE AUTO 1.033 (1.002-1.035); SQUAMOUS EPITHELIAL CELL UR AU 4 /HPF (0-6); UROBILINOGEN, URINE AUTO 0.2 mg/dL (0.0-2.0); WBC, URINE AUTO 1 /HPF (0-3)
== END ==
LOC: M LAB REF 10:08
PROVIDERS: ATTEND Physician Assistant Medical
DX: N39.0 Urinary tract infection, site not specified (principal)

== ENCOUNTER → 2024-03-17 | Outpatient (CLI) | payer OTHER | LOC: M RAD 10:31 | PROVIDERS: ATTEND Student in an Organized Health Care Education/Training Program | DX: Z12.2 Encounter for screening for malignant neoplasm of respiratory organs (principal); F17.201 Nicotine dependence, unspecified, in remission ==

== ENCOUNTER → 2024-04-24 | Outpatient (REF) | payer OTHER ==
[~2024-04-24] MED LIST changes: -ROSU40TA4 PO; +ROSU40TA63 PO
[2024-04-24 18:03] LABS: APPEARANCE, URINE CLEAR (CLEAR); BACTERIA, URINE AUTO 1+ (NEGATIVE); BILIRUBIN, URINE AUTO NEGATIVE (NEGATIVE); BLOOD, URINE BLOOD NEGATIVE (NEGATIVE); COLOR, URINE YELLOW (YELLOW); GLUCOSE, URINE (UA) AUTO 3+ mg/dL (NEGATIVE); KETONE, URINE AUTO NEGATIVE (NEGATIVE); LEUKOCYTE ESTERASE, URINE AUTO NEGATIVE (NEGATIVE); MUCUS, URINE SMALL (NEGATIVE); NITRITE, URINE AUTO NEGATIVE (NEGATIVE); PROTEIN, URINE AUTO NEGATIVE (NEGATIVE); RBC, URINE AUTO 0 /HPF (0-3); SPECIFIC GRAVITY URINE AUTO 1.036 (1.002-1.035); SQUAMOUS EPITHELIAL CELL UR AU 3 /HPF (0-6); UROBILINOGEN, URINE AUTO 0.2 mg/dL (0.0-2.0); WBC, URINE AUTO 1 /HPF (0-3)
== END ==
LOC: M LAB REF 16:24
PROVIDERS: ATTEND Physician Assistant
DX: N39.0 Urinary tract infection, site not specified (principal)

== ENCOUNTER → 2024-08-22 | Outpatient (REF) | payer OTHER ==
[~2024-08-22] MED LIST changes: +GABA-1490; -GABA600T4; -ROSU40TA63 PO; +ROSU40TA81 PO
[2024-08-22 19:48] LABS: APPEARANCE, URINE HAZY (CLEAR); BACTERIA, URINE AUTO NEGATIVE (NEGATIVE); BILIRUBIN, URINE AUTO NEGATIVE (NEGATIVE); BLOOD, URINE BLOOD 3+ (NEGATIVE); COLOR, URINE YELLOW (YELLOW); GLUCOSE, URINE (UA) AUTO 3+ mg/dL (NEGATIVE); KETONE, URINE AUTO NEGATIVE (NEGATIVE); LEUKOCYTE ESTERASE, URINE AUTO 3+ (NEGATIVE); MUCUS, URINE SMALL (NEGATIVE); NITRITE, URINE AUTO NEGATIVE (NEGATIVE); PROTEIN, URINE AUTO NEGATIVE (NEGATIVE); RBC, URINE AUTO 43 /HPF (0-3); SPECIFIC GRAVITY URINE AUTO 1.005 (1.002-1.035); SQUAMOUS EPITHELIAL CELL UR AU 2 /HPF (0-6); UROBILINOGEN, URINE AUTO 0.2 mg/dL (0.0-2.0); WBC, URINE AUTO TNTC /HPF (0-3)
== END ==
LOC: M LAB REF 19:19
PROVIDERS: ATTEND Physician Assistant
DX: N39.0 Urinary tract infection, site not specified (principal)

== ENCOUNTER → 2025-03-07 | Outpatient (REF) | payer OTHER ==
[2025-03-07 17:38] LABS: APPEARANCE, URINE CLEAR (CLEAR); BACTERIA, URINE AUTO NEGATIVE (NEGATIVE); BILIRUBIN, URINE AUTO NEGATIVE (NEGATIVE); BLOOD, URINE BLOOD NEGATIVE (NEGATIVE); COLOR, URINE YELLOW (YELLOW); GLUCOSE, URINE (UA) AUTO 3+ mg/dL (NEGATIVE); KETONE, URINE AUTO NEGATIVE (NEGATIVE); LEUKOCYTE ESTERASE, URINE AUTO NEGATIVE (NEGATIVE); MUCUS, URINE SMALL (NEGATIVE); NITRITE, URINE AUTO NEGATIVE (NEGATIVE); PROTEIN, URINE AUTO NEGATIVE (NEGATIVE); RBC, URINE AUTO 1 /HPF (0-3); SPECIFIC GRAVITY URINE AUTO 1.023 (1.002-1.035); SQUAMOUS EPITHELIAL CELL UR AU 5 /HPF (0-6); UROBILINOGEN, URINE AUTO 0.2 mg/dL (0.0-2.0); WBC, URINE AUTO 2 /HPF (0-3)
== END ==
LOC: M LAB REF 17:01
PROVIDERS: ATTEND Physician Assistant
DX: N39.0 Urinary tract infection, site not specified (principal)

== ENCOUNTER → 2025-09-16 | Outpatient (REF) | payer OTHER ==
[~2025-09-16] MED LIST changes: +AMMO12CR4 TOP; -AMMO12CR7 TOP; +HYDR12.510 PO; -HYDR12CA PO; +LIDO1ADH93 TD; -LIDO5DIS41 TD
[2025-09-16 18:28] LABS: APPEARANCE, URINE HAZY (CLEAR); BACTERIA, URINE AUTO NEGATIVE (NEGATIVE); BILIRUBIN, URINE AUTO NEGATIVE (NEGATIVE); BLOOD, URINE BLOOD NEGATIVE (NEGATIVE); GLUCOSE, URINE (UA) AUTO 2+ mg/dL (NEGATIVE); KETONE, URINE AUTO NEGATIVE (NEGATIVE); LEUKOCYTE ESTERASE, URINE AUTO NEGATIVE (NEGATIVE); MUCUS, URINE SMALL (NEGATIVE); NITRITE, URINE AUTO NEGATIVE (NEGATIVE); PROTEIN, URINE AUTO NEGATIVE (NEGATIVE); RBC, URINE AUTO 1 /HPF (0-3); SPECIFIC GRAVITY URINE AUTO 1.023 (1.002-1.035); SQUAMOUS EPITHELIAL CELL UR AU 7 /HPF (0-6); UROBILINOGEN, URINE AUTO 0.2 mg/dL (0.0-2.0); WBC, URINE AUTO 1 /HPF (0-3)
== END ==
LOC: M LAB REF 16:49
PROVIDERS: ATTEND Physician Assistant
DX: N39.0 Urinary tract infection, site not specified (principal)